=== PATIENT | female | born 1965 | race Caucasian/White ===

== ENCOUNTER 2016-06-24 13:28 | Outpatient (CLI) ==
[2015-11-08 18:30] VITALS: BMI 29.0
[2016-06-24 13:50] LABS: HEMATOCRIT 37.6 % (37.0-47.0); HEMOGLOBIN 12.7 g/dl (12.0-16.0); MEAN CORPUSCULAR HEMOGLOBIN 30.4 pg (27.0-31.0); MEAN CORPUSCULAR HGB CONC 33.8 (31.8-35.4); RED BLOOD COUNT 4.18 10^6/ul (4.20-5.40); WHITE BLOOD COUNT 7.33 K/ul (4.6-10.2)
[2016-06-24 14:02] LABS: PROTHROMBIN TIME 10.3 SEC (9.3-11.0)
== END 2016-06-24 13:29 | disposition home or self-care (01) ==
LOC: LAB 13:28
PROVIDERS: ATTEND Radiology Diagnostic Radiology
DX: R19.09 Other intra-abdominal and pelvic swelling, mass and lump (principal)
CPT/HCPCS: 36415; 85027; 85610

== ENCOUNTER 2016-10-22 11:15 | Outpatient (CLI) ==
[2015-11-08 18:30] VITALS: BMI 29.0
[2016-10-22] MEDS ORDERED: LOVENOX SUBCUT SCH (11:30)
[2016-10-22 21:19] VITALS: BP 107/70; TEMP 98.9
== END 2016-10-22 11:16 | disposition home or self-care (01) ==
LOC: OPMED 11:15
PROVIDERS: ATTEND Internal Medicine Hematology & Oncology
DX: I82.409 Acute embolism and thrombosis of unspecified deep veins of unspecified lower extremity (principal)
CPT/HCPCS: 96372

== ENCOUNTER 2016-10-22 21:04 | Outpatient (CLI) ==
[2015-11-08 18:30] VITALS: BMI 29.0
[2016-10-22] MEDS ORDERED: LOVENOX ONE (21:15)
== END 2016-10-22 21:05 | disposition home or self-care (01) ==
LOC: OPMED 21:04
PROVIDERS: ATTEND Internal Medicine Hematology & Oncology
DX: I82.409 Acute embolism and thrombosis of unspecified deep veins of unspecified lower extremity (principal)

== ENCOUNTER 2016-10-23 09:02 | Outpatient (CLI) ==
[2015-11-08 18:30] VITALS: BMI 29.0
[2016-10-23] MEDS ORDERED: LOVENOX SUBCUT SCH (09:30)
[2016-10-23 09:39] VITALS: BP 108/58; TEMP 98.1
== END 2016-10-23 09:34 | disposition home or self-care (01) ==
LOC: OPMED 09:02
PROVIDERS: ATTEND Internal Medicine Hematology & Oncology
DX: I82.409 Acute embolism and thrombosis of unspecified deep veins of unspecified lower extremity (principal)
CPT/HCPCS: 96372

== ENCOUNTER 2016-10-23 18:18 | Outpatient (CLI) ==
[2015-11-08 18:30] VITALS: BMI 29.0
[2016-10-23 19:10] VITALS: BP 109/68; TEMP 98.6
[2016-10-24] MEDS ORDERED: LOVENOX SUBCUT ONE (18:33)
== END 2016-10-23 18:19 | disposition home or self-care (01) ==
LOC: OPMED 18:18
PROVIDERS: ATTEND Internal Medicine Hematology & Oncology
DX: I82.409 Acute embolism and thrombosis of unspecified deep veins of unspecified lower extremity (principal)
CPT/HCPCS: 96372

== ENCOUNTER 2017-01-05 13:06 | Outpatient (CLI) ==
[2015-11-08 18:30] VITALS: BMI 29.0
== END 2017-01-05 13:07 | disposition home or self-care (01) ==
LOC: LAB 13:06
PROVIDERS: ATTEND Nurse Practitioner Family
DX: E03.9 Hypothyroidism, unspecified (principal); Z86.718 Personal history of other venous thrombosis and embolism
CPT/HCPCS: 36415; 80061; 84443

== ENCOUNTER 2017-05-14 11:16 | Inpatient (IN) ==
[2017-05-14] MEDS ORDERED: SODIUM CHLORIDE 1,000 ML IV STA (12:03)
[2017-05-14] MEDS ORDERED: ZOFRAN 4 MG/2 ML IVP STA (12:23)
[2017-05-14] MEDS ORDERED: MORPHINE 2 MG/ML SYRINGE IVP STA (12:23)
[2017-05-14] MEDS ORDERED: DILAUDID 2 MG/ML SYRINGE IVP STA (12:27)
[2017-05-14] MEDS ORDERED: DEMEROL 25 MG/ML VIAL IVP STA (12:33)
--- NOTE | 2017-05-14 13:10 | ED.PDOC ---
General ED Provider: Dr. NILO TARANGO Chief Complaint: Nausea/Vomiting Stated Complaint: nausea, vomiting Time Seen by Physician: 11:20 (hospice pt with ongoing nausea some vomiting seen with SARAH PA STUDENT AT ALL TIME AND NURSING STAFF) Mode of Arrival: Wheelchair Information Source: Patient, Family Exam Limitations: No limitations Primary Care Provider: ANGY TROTTER Nursing and Triage Documentation Reviewed and Agree: Yes Reviewed sepsis parameters & appropriate labs ordered?: Yes System Inflammatory Response Syndrome: Not Applicable Sepsis Protocol: For patient's 13 years and over: Temp is 96.8 and below OR 101 and greater Pulse >90 BPM Resp >20/minute Acutely Altered Mental Status Are patient's symptoms suggestive of a new infection, such as: -Pneumonia -Skin, Soft Tissue -Endocarditis -UTI -Bone, Joint Infection -Implantable Device -Acute Abdominal Infection -Wound Infection -Meningitis -Blood Stream Catheter Infection -Unknown System Inflammatory Response Syndrome: Not Applicable GI Complaint Exam - Vomiting/Diarrhea Complaint/Exam Onset/Duration: 3 DAYS Symptoms Are: Resolved Episodes of Vomiting over last 24 Hours: 5 Episodes of Diarrhea Over Last 24 Hours: 0 Initial Severity: Moderate Current Severity: Mild Character of Vomiting: Reports: Non-bilious Aggravating: Reports: None Alleviating: Reports: None Associated Signs and Symptoms: Denies: Dizziness, Light-headedness, Melena, Hematemesis, Fever, Abdominal pain, Cramping Related History: Reports: Similar episode Non-GI Risk Factors: Reports: None Surgical Obstruction Risk Factors: Reports: None Related Surgical History: Reports: None Abdominal Findings: Present: None Review of Systems - Review Of Systems Constitutional: Reports: Malaise Eyes: Reports: No symptoms Ears, Nose, Mouth, Throat: Reports: No symptoms Respiratory: Reports: No symptoms Cardiac: Reports: No symptoms GI: Reports: Nausea, Vomiting : Reports: No symptoms Musculoskeletal: Reports: No symptoms Skin: Reports: No symptoms Neurological: Reports: No symptoms Endocrine: Reports: No symptoms Hematologic/Lymphatic: Reports: No symptoms All Other Systems: Reviewed and Negative Past Medical History - Past Medical History Previously Healthy: Yes Endocrine: Reports: Hypothyroid Cardiovascular: Reports: None Respiratory: Reports: COPD Hematological: Reports: None Gastrointestinal: Reports: GERD, Other Genitourinary: Reports: None Neuro/Psych: Reports: None Musculoskeletal: Reports: None Cancer: Reports: Other Last Menstrual Period: hysterectomy - Surgical History General Surgical History: Reports: Hysterectomy, Orthopedic - Family History Family History: Reports: Unknown - Social History Smoking Status: Current every day smoker, Light tobacco smoker Hx Substance Use: No Alcohol Screening: None Physical Exam - Physical Exam Appearance: Ill-appearing Ill-appearing: Moderate Pain Distress: Moderate Eyes: JANAY, EOMI, Conjunctiva clear ENT: Dry mucosa Respiratory: Airway patent, Breath sounds clear, Breath sounds equal, Respirations nonlabored Cardiovascular: RRR, Pulses normal, No rub, No murmur GI/: Soft, Nontender, No masses, Bowel sounds normal, No Organomegaly Musculoskeletal: Normal strength, ROM intact, No edema, No calf tenderness Skin: Warm, Dry, Normal color Neurological: Sensation intact, Motor intact, Reflexes intact, Cranial nerves intact, Alert, Oriented Psychiatric: Affect appropriate, Mood appropriate Physician Notification - Case Discussed Physician Notified: DANE Time of Notification: 13:12 Admit To: Inpatient Critical Care Note - Critical Care Note Total Time (mins): 0 Course - Course Hematology/Chemistry: 05/14/17 12:00 05/14/17 12:00 Orders, Labs, Meds: Lab Review 05/14/17 05/14/17 05/14/17 12:00 12:00 12:02 WBC 23.83 H RBC 4.50 Hgb 11.9 L Hct 35.0 L MCV 77.8 L MCH 26.4 L MCHC 34.0 RDW Coeff of Tony 15.3 H Plt Count 424 Immature Gran % (Auto) 0.7 Neut % (Auto) 87.2 Lymph % (Auto) 7.5 L [place] % (Auto) 3.7 Eos % (Auto) 0.4 Baso % (Auto) 0.5 Immature Gran # (Auto) 0.2 Neut # 20.8 H Lymph # 1.8 [place] # 0.9 Eos # 0.1 Baso # 0.1 Sodium 136 Potassium 4.2 Chloride 100 Carbon Dioxide 22 Anion Gap 18.2 BUN 9 Creatinine 0.75 Estimated GFR (MDRD) 81.00 BUN/Creatinine Ratio 12.00 Glucose 105 Calcium 9.2 Total Bilirubin < 0.3 AST 12 L ALT 6 L Alkaline Phosphatase 92 Total Protein 7.2 Albumin 2.6 L Globulin 4.6 Albumin/Globulin Ratio 0.57 Influenza A (Rapid) Negative by naat Influenza B (Rapid) Negative by naat Orders Category Date Time Status ED IV/MEDIPORT/POWERPORT .ONCE EMERGENCY 05/14/17 12:00 Active BLOOD CULTURE (ED ONLY) Stat LAB 05/14/17 12:00 Received CBC W/ AUTO DIFF Stat LAB 05/14/17 12:00 Completed COMPREHENSIVE METABOLIC PANEL Stat LAB 05/14/17 12:00 Completed FLU A/B MOLECULAR Stat LAB 05/14/17 12:02 Completed MOLECULAR GROUP A STREP Stat LAB 05/14/17 12:02 Completed 0.9 % Sodium Chloride [Saline Flush] MEDS 05/14/17 11:59 Active 1 syr IVF PRN PRN Meperidine HCl/Pf [Demerol 25 mg/ml Vial] MEDS 05/14/17 12:33 Discontinued 25 mg IVP ONCE STA Morphine Sulfate [Morphine 2 mg/ml Syringe] MEDS 05/14/17 12:23 Discontinued 2 mg IVP ONCE STA Sodium Chloride 0.9% [Sodium Chloride] 1,000 ml MEDS 05/14/17 12:03 Discontinued IV BOLUS Medications Generic Name Dose Route Start Last Admin Trade Name Freq PRN Reason Stop Dose Admin Sodium Chloride 1 syr 05/14/17 11:59 Saline Flush IVF PRN PRN To flush IV Discontinued Medications Generic Name Dose Route Start Last Admin Trade Name Freq PRN Reason Stop Dose Admin Sodium Chloride 1,000 mls @ 1,000 mls/hr 05/14/17 12:03 05/14/17 12:29 Sodium Chloride IV 05/14/17 13:02 1,000 mls/hr BOLUS STA Administration Meperidine HCl 25 mg 05/14/17 12:33 05/14/17 12:40 Demerol 25 Mg/Ml Vial IVP 05/14/17 12:34 25 mg ONCE STA Administration Morphine Sulfate 2 mg 05/14/17 12:23 05/14/17 12:29 Morphine 2 Mg/Ml Syringe IVP 05/14/17 12:24 Not Given ONCE STA Vital Signs: Temp Pulse Resp BP Pulse Ox 05/14/17 11:16 97.3 F L 100 H 20 118/68 100 Departure - Departure Time of Disposition: 13:12 Disposition: ADMITTED INPATIENT Discharge Problem: Nausea, Vomiting, Weakness Instructions: Weakness (ED) Condition: Good Pt referred to PMD for follow-up: Yes IPMP verified?: Yes Allergies/Adverse Reactions: Allergies codeine Adverse Reaction (Verified 11/08/15 18:24) morphine Adverse Reaction (Verified 05/14/17 11:27) Penicillins Adverse Reaction (Verified 11/08/15 18:24) Home Medications: Ambulatory Orders Lorazepam [Ativan] 2 mg PO Q6HR PRN 05/14/17 Oxycodone-Acetaminophen 10-325 [Percocet 10-325] 1 tab PO Q4H 05/14/17 Promethazine HCl [Phenergan Tab] 25 mg PO Q6H PRN 05/14/17
[2017-05-14] MEDS ORDERED: ROCEPHIN 1 GM in SODIUM CHLORIDE 50 ML IV STA (13:14)
[2017-05-14] MEDS ORDERED: NON-FORMULARY MEDICATION (Lorazepam [Ativan] 2 MG) PO PRN (13:14)
[2017-05-14] MEDS ORDERED: ROCEPHIN ONE (13:23)
[2017-05-14] MEDS ORDERED: PROTONIX IV IVP STA (15:03)
[2017-05-14] MEDS ORDERED: ESOMEPRAZOLE MAGNESIUM PO PRN (15:21)
[2017-05-14] MEDS ORDERED: NORCO 10-325 ONE (15:23)
[2017-05-14] MEDS: PERCOCET 10-325 PO SCH ×3 (15:26→20:44)
[2017-05-14] MEDS: SODIUM CHLORIDE 1,000 ML IV SCH (15:30)
[2017-05-14 15:41] VITALS: BMI 24.8
[2017-05-14] MEDS: PHENERGAN TAB PO PRN (18:28)
[2017-05-15] MEDS: PERCOCET 10-325 PO SCH ×4 (02:14→14:11)
[2017-05-15] MEDS ORDERED: ATIVAN PO PRN (07:11)
[2017-05-15] MEDS: SODIUM CHLORIDE 1,000 ML IV SCH (07:21)
[2017-05-15] MEDS: PHENERGAN TAB PO PRN (07:21)
[2017-05-15] MEDS ORDERED: SODIUM CHLORIDE 250 ML IV ONE (08:32)
[2017-05-15 14:59] VITALS: BP 106/64; TEMP 97.9
--- NOTE | 2017-06-02 11:36 | HP ---
DATE OF SERVICE: 05/14/17 CHIEF COMPLAINT: Nausea and vomiting HISTORY OF PRESENT ILLNESS: 51 year old female with endometrial cancer with the multiple metastasis on Hospice, started having the nausea, vomiting and not able to keep anything down since Monday. No bilious vomiting. Was having some discomfort in the body, feeling weak and tired so the [facility] nurse suggested that the patient should go to the hospital to get some IV fluids. The patient came to the emergency room and the temperature was normal. Seen by Dr. Daly. WBC was 23, 000. Plt count was 15.3, hgb 11.9. At that time the patient was admitted to the hospital for IV fluids and Zofran. REVIEW OF SYSTEMS: CONSTITUTIONAL: No fever, no chills. Weakness and tiredness. HEENT: Normal. ENDOCRINE: No weight gain; no weight loss. CVS: No chest pain. No PND, no orthopnea. No shortness of breath. No PND, no orthopnea. RESPIRATORY: No cough, no congestion. No hemoptysis. GI: No nausea, no vomiting. No abdominal pain. No melena. : No hematuria. No polyuria. MUSCULOSKELETAL: No joint swelling. PSYCHIATRIC: Not anxious. No depression. No suicidal thoughts. No homicidal thoughts. SKIN: Intact, no open lesions. PAST MEDICAL HISTORY: COPD GERD IBS Endometrial tumor with total hysterectomy Left and right Nephro tubes since 2017 PAST SURGICAL HISTORY: Hysterectomy Arthroscopy Tubes in the ureter PERSONAL HISTORY: The patient does smoke. No alcohol and no drugs. Family history is significant for the lung cancer. MEDICATIONS: Phenergan tab Percocet Ativan Nexium ALLERGIES: Codeine Morphine Penicillin PHYSICAL EXAMINATION: V/S: blood pressure 130/77, respiratory rate 20, heart rate 88, temperature 98.5 with saturation 98%. GENERAL: Sick looking lady laying in the bed. HEENT: Atraumatic, normocephalic. No scleral icterus. Mucosa dry. NECK: Supple. No JVD, no bruit. No lymphadenopathy. No thyromegaly. HEART: S1, S2 normal. No murmur. No cyanosis or clubbing. No ascites. LUNGS: Clear to auscultation. No rales or rhonchi. ABDOMEN: Soft, There is a palpable mass in the left side of the abdomen which is tender to touch which is tumor mass. Bowel sounds are active. No CVA tenderness. No rigidity or guarding. EXTREMITIES: No pedal edema. No cyanosis or clubbing MUSCULOSKELETAL: Normal joints, no swelling. NEUROLOGIC: The patient is SKIN: Intact; no open lesions. LYMPHATIC: No lymph nodes palpable. LABS: Sodium 136, potasium 4.2, chloride 100, bicarb 22, BUN 9, creatinine 0.75, glucose 105, WBC 23.83, hgb 11.9, hct 35.0 and plt count 424. ASSESSMENT: 1. Acute gastritis 2. Dehydration 3. Endometrial cancer with METS all over the body, status post chemo and radiation on Hospice 4. COPD 5. Hypertension PLAN: 1. Admit the patient to the regular floor 2. IV Zofran and IV Fluids 3. Continue the rest of the home medications TIME SPENT: MORE THAN 75 minutes MTDD
--- NOTE | 2017-06-30 13:26 | DS ---
DATE OF SERVICE: 05/15/17 FINAL DIAGNOSIS: 1. Dehydration 2. Leukocytosis secondary to the dehydration 3. Weakness 4. Endometrial cancer has [facility], Taniya Valdivia 5. Ovarian Cancer resected 2006 6. IBS, Dr. Escobar 7. Hypothyroidism 8. COPD 9. Current smoker 10.Endometrial cancer with METS all over the body 11.Hysterectomy 12.Right knee surgery 13.Nephrostomy, right and left DISCHARGE INSTRUCTIONS: Discharge the patient home. Followup with Dr. Horner. [facility] to follow. Continue home medication. No new prescription. MEDICATIONS AT DISCHARGE: Ativan Protonix Oxycodone Phenergan PRN DIET INSTRUCTIONS: As tolerated Drink plenty of water. ACTIVITY: Get plenty of rest SMOKING: Current everyday smoker. Light tobacco smoker Counseling for smoking done DISEASE SPECIFIC EDUCATION: Endometrial cancer with multiple METS- The patient is aware of the situation. She is on the Hospice. HOSPITAL COURSE: Lizzie Lugo 51 year old female followed [facility] and the Dr. Horner for the Endometrial cancer. The patient has a metastatic cancer all over the body. The patient was feeling weak, tired and dehydrated so Dr. Horner suggested to go to the emergency room. The patient came to the emergency room WBC 23,000 with left shift. Chemistry was fine and serology negative for the Flu. Refused to have CAT scan so it is cancelled at this time. At that time given the elevated WBC and no fever with dehydration the patient was admitted to the hospital and started on the IV fluids. By next day the patient's condition was a lot better. Talked to Dr. Horner's office, the patient is under the Hospice and doesn't want any aggressive measures or management at this given time so the patient is being discharged home with Hospice Care as the patient was feeling improved and well rested. TIME SPENT: MORE THAN 55 MINUTES MTDD
== END 2017-05-15 16:15 | disposition hospice, home (50) | DRG 641 ==
LOC: ED 11:16 → MEDSURG B 13:18
PROVIDERS: ADMIT Emergency Medicine; ATTEND Emergency Medicine
DX: E86.0 Dehydration (principal); C79.89 Secondary malignant neoplasm of other specified sites; R53.1 Weakness; D72.829 Elevated white blood cell count, unspecified; R11.2 Nausea with vomiting, unspecified; C54.1 Malignant neoplasm of endometrium; K58.9 Irritable bowel syndrome, unspecified; E03.9 Hypothyroidism, unspecified; J44.9 Chronic obstructive pulmonary disease, unspecified; F17.210 Nicotine dependence, cigarettes, uncomplicated; Z93.6 Other artificial openings of urinary tract status; Z79.899 Other long term (current) drug therapy
CPT/HCPCS: 36415; 80053; 85025; 87040; 87070; 87502; 87651; 96365; 96375; 99284

== ENCOUNTER 2017-07-14 10:05 | Emergency (ER) ==
[2017-07-14 10:14] VITALS: BP 126/83; TEMP 98.5; BMI 23.1
[2017-07-14] MEDS ORDERED: URO-JET MUCOUSMEMB STA (10:42)
--- NOTE | 2017-07-14 11:45 | CT ---
EXAM: CT Abdomen without contrast. CT Pelvis without contrast. HISTORY: Inability to void. Endometrial tumor. COMPARISON: 12/07/2011. TECHNIQUE: Multiple axial images of the abdomen and pelvis were obtained without intravenous contras t. Images were reformatted in the sagittal and coronal plane. FINDINGS: Please note that evaluation of the abdominal and pelvic structures is limited due to lack of intravenous contrast. The lung bases are clear. No acute osseous abnormality identified. No osteolytic or osteoblastic le sions are seen. The liver, gallbladder, pancreas, spleen, and adrenal glands demonstrate normal contour. Bilateral percutaneous nephrostomy tubes are present. There is no hydronephrosis. There is left sarah al atrophy. An catheter present within a collapsed urinary bladder which is displaced anteriorly by a large co mplex mass which extends at least 31 cm cranial caudal by 24 cm transverse by 15 cm AP which also dis places bowel loops. Additional mesenteric soft tissue mass is present measuring up to 8.5 x 6.6 x 7. 1 cm in the upper abdomen on axial image 43. Adjacent nodularity along the omentum near this mass no mike . Umbilical hernia contains a loop of bowel. There is no associated inflammation. There is no evidence for bowel obstruction. Moderate hiatal hernia noted. No free fluid or free air identified. IMPRESSION: 1. Large pelvic mass, most likely representing gynecologic malignancy. Additional metastatic mesent luana mass in the upper abdomen with possible omental involvement. 2. Bilateral percutaneous nephrostomy tubes present without hydronephrosis. An catheter present within a collapsed urinary bladder.
[2017-07-14] MEDS ORDERED: ROCEPHIN IM STA (12:40)
[2017-07-14] MEDS ORDERED: LIDOCAINE HCL 1% SDV IM STA (12:40)
--- NOTE | 2017-07-14 12:44 | ED.PDOC ---
General ED Provider: Dr. 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 ) Mode of Arrival: Walk-In Information Source: Patient Exam Limitations: No limitations Nursing and Triage Documentation Reviewed and Agree: Yes Reviewed sepsis parameters & appropriate labs ordered?: Yes System Inflammatory Response Syndrome: Not Applicable Sepsis Protocol: For patient's 13 years and over: Temp is 96.8 and below OR 101 and greater Pulse >90 BPM Resp >20/minute Acutely Altered Mental Status Are patient's symptoms suggestive of a new infection, such as: -Pneumonia -Skin, Soft Tissue -Endocarditis -UTI -Bone, Joint Infection -Implantable Device -Acute Abdominal Infection -Wound Infection -Meningitis -Blood Stream Catheter Infection -Unknown System Inflammatory Response Syndrome: Not Applicable GI Complaint Exam - Abdominal Pain Complaint/Exam Onset: Gradual Duration: 1 DAY ACCOMPANIED WITH SUPRAPUBIC PAIN Symptoms Are: Still present Timing: Constant Initial Severity: Mild Current Severity: Mild Location of Pain: Suprapubic Radiates To: Denies: Chest, Back, Flank, LLQ, RLQ, Inguinal Character: Reports: Dull Aggravating: Denies: Movement (URINATION ANBLE TO URINATE) Alleviating: Reports: None Associated Signs and Symptoms: Reports: Dysuria, Decreased urine output, Decreased appetite. Denies: Diaphoresis, Fever, Cough, Chest pain, Dizziness, Back pain, Constipation, Blood in stool, Urinary frequency, Vaginal bleeding, Vaginal discharge, Nausea, Vomiting, Diarrhea, Sore throat, Decreased activity Related History: Reports: Similar episode (SUPERVISOR TILE AND MOTTLE CANCER ) AAA Risk Factors: Denies: Prior AAA, Primary relative AAA, Smoking, Hypertension , Atherosclerosis Cardiac Risk Factors: Denies: DM, Hypertension, Smoking, Elevated lipids, Family history, Prior MT, CAD, CHF Ovarian Torsion Risk Factors: Denies: Tubal ligation, Hysterectomy (HAS HX/O ENDSTAGE ENDOMETRIAL CANCER ) Surgical Obstruction Risk Factors: Reports: Prior abdominal surgery ( NEPHROSTOMY TUBES ). Denies: Bilious emesis, Projectile emesis, Colicky abdominal pain Related Surgical History: Denies: Cholecystectomy, Appendectomy, AAA Repair, Gastric Bypass, Bowel Resection, Laparoscopy, Kidney Stones, MIKEL, BSO, Tubal ligation, Lysis of Adhesions Patient Rh Status: Unknown Abdominal Findings: Absent: None Differential Diagnoses: Appendicitis, Bowel Obstruction, Constipation, Gastroenteritis, Hepatitis, Pancreatitis, UTI Review of Systems - Review Of Systems Constitutional: Reports: No symptoms Eyes: Reports: No symptoms Ears, Nose, Mouth, Throat: Reports: No symptoms Respiratory: Reports: No symptoms Cardiac: Reports: No symptoms GI: Reports: Abdominal pain : Reports: Dysuria Musculoskeletal: Reports: No symptoms Skin: Reports: No symptoms Neurological: Reports: No symptoms Endocrine: Reports: No symptoms Hematologic/Lymphatic: Reports: No symptoms All Other Systems: Reviewed and Negative Past Medical History - Past Medical History Previously Healthy: Yes Endocrine: Reports: Hypothyroid Cardiovascular: Reports: None Respiratory: Reports: COPD Hematological: Reports: None Gastrointestinal: Reports: GERD, Other Genitourinary: Reports: None Neuro/Psych: Reports: None Musculoskeletal: Reports: None Cancer: Reports: Other Last Menstrual Period: unknown - Surgical History General Surgical History: Reports: Hysterectomy, Orthopedic - Family History Family History: Reports: Unknown - Social History Smoking Status: Current every day smoker, Light tobacco smoker Hx Substance Use: No Alcohol Screening: None Physical Exam - Physical Exam Appearance: Well-appearing, No pain distress, Well-nourished Eyes: JANAY, EOMI, Conjunctiva clear ENT: Ears normal, Nose normal, Oropharynx normal Respiratory: Airway patent, Breath sounds clear, Breath sounds equal, Respirations nonlabored Cardiovascular: RRR, Pulses normal, No rub, No murmur GI/: Soft, No masses, Bowel sounds normal, No Organomegaly, Tender ( SUPRAPUBIC ) Musculoskeletal: Normal strength, ROM intact, No edema, No calf tenderness Skin: Warm, Dry, Normal color Neurological: Sensation intact, Motor intact, Reflexes intact, Cranial nerves intact, Alert, Oriented Psychiatric: Affect appropriate, Mood appropriate Interpretation - Radiology Interpretation Radiology Interpretation By: Radiologist Radiology Results: Positive (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 TILE AND MOTTLE CANCER PT IS AWARE) Re-Evaluation - Re-Evaluation Time of Re-Evaluation: 10:30 (POST AN 600 ML URINE WAS EVACUATED PT IS COMFORTABLE) Vital Signs Stable: Yes Pain Level: 0 Appearance: NAD Lungs: Clear Skin: Warm and Dry Neuro: Alert and Oriented X3 CV: RRR - Re-Evaluation Time of Re-Evaluation: 12:48 Status: Improved Vital Signs Stable: Yes Pain Level: 0 Appearance: NAD Skin: Warm and Dry Neuro: Alert and Oriented X3 CV: RRR (AN EXCAMINED NO BLOOD NOTED GROSSLY) Critical Care Note - Critical Care Note Total Time (mins): 0 Course - Course Hematology/Chemistry: 07/14/17 10:40 Orders, Labs, Meds: Lab Review 07/14/17 07/14/17 10:40 11:00 WBC 13.59 H RBC 4.12 L Hgb 9.8 L Hct 29.7 L MCV 72.1 L MCH 23.8 L MCHC 33.0 RDW Coeff of Tony 17.1 H Plt Count 436 Immature Gran % (Auto) 0.6 Neut % (Auto) 80.2 Lymph % (Auto) 11.8 [place] % (Auto) 5.3 Eos % (Auto) 1.7 Baso % (Auto) 0.4 Immature Gran # (Auto) 0.1 Neut # (Auto) 10.9 H Lymph # (Auto) 1.6 [place] # (Auto) 0.7 Eos # (Auto) 0.2 Baso # (Auto) 0.1 Urine Color Yellow Urine Clarity Cloudy Urine pH 6.5 Ur Specific [place] 1.010 Urine Protein Negative Urine Glucose (UA) Negative Urine Ketones Negative Urine Blood Trace-intact Urine Nitrite Positive Urine Bilirubin Negative Urine Urobilinogen 0.2 Ur Leukocyte Esterase 3+ Urine Microscopic RBC 0-2 Urine Microscopic WBC Tntc Ur Squamous Epith Cells 0-2 Urine Bacteria 3+ Orders Category Date Time Status Bladder [ED BLADDER SCAN] .ONCE EMERGENCY 07/14/17 10:41 Active An [ED CATHETER INSERTION AND CARE] .ONCE EMERGENCY 07/14/17 10:42 Active CBC W/ AUTO DIFF Stat LAB 07/14/17 10:40 Completed COMPREHENSIVE METABOLIC PANEL Stat LAB 07/14/17 11:00 Received URINALYSIS C & S IF INDICATED Stat LAB 07/14/17 11:00 Completed URINE CULTURE Stat LAB 07/14/17 11:00 Received Ceftriaxone Sodium [Rocephin] MEDS 07/14/17 12:40 Stat 1 gm IM ONCE STA Lidocaine HCl [Uro-Jet] MEDS 07/14/17 10:42 Discontinued 10 ml [id number] ONCE STA Lidocaine HCl/Pf [Lidocaine HCl 1% Sdv] MEDS 07/14/17 12:40 Stat 2.1 ml IM ONCE STA CT ABD/PEL WO RENAL STONE PROT Stat RADS 07/14/17 10:40 Completed Medications Discontinued Medications Generic Name Dose Route Start Last Admin Trade Name Freq PRN Reason Stop Dose Admin Ceftriaxone Sodium 1 gm 07/14/17 12:40 Rocephin IM 07/14/17 12:41 ONCE STA Lidocaine HCl 10 ml 07/14/17 10:42 07/14/17 11:19 Uro-Jet [id number] 07/14/17 10:43 Not Given ONCE STA Lidocaine HCl 2.1 ml 07/14/17 12:40 Lidocaine Hcl 1% Sdv IM 07/14/17 12:41 ONCE STA Vital Signs: Temp Pulse Resp BP Pulse Ox 07/14/17 10:06 98.5 F 117 H 20 126/83 98 Departure - Departure Time of Disposition: 12:48 Disposition: HOME SELF-CARE Discharge Problem: Urinary symptoms, Urinary tract infectious disease Instructions: Urinary Tract Infection in Women (ED), An Catheter Placement and Care (ED), Chronic Urinary Retention in Women (ED) Condition: Good Pt referred to PMD for follow-up: Yes IPMP verified?: No Additional Instructions: Please call your Family Physician as soon as possible to schedule a follow-up appointment. Prescriptions: Sulfamethoxazole/Trimethoprim [Bactrim Ds Tablet] 1 each PO BID #10 tablet Allergies/Adverse Reactions: Allergies codeine Adverse Reaction (Verified 07/14/17 10:14) morphine Adverse Reaction (Verified 07/14/17 10:14) Penicillins Adverse Reaction (Verified 07/14/17 10:14) Home Medications: Ambulatory Orders Esomeprazole Magnesium [Nexium 24Hr] 1 tab PO DAILY PRN 05/14/17 Lorazepam [Ativan] 2 mg PO Q6HR PRN 05/14/17 Oxycodone-Acetaminophen 10-325 [Percocet 10-325] 1 tab PO Q4H 05/14/17 Promethazine HCl [Phenergan Tab] 25 mg PO Q6H PRN 05/14/17 Methadone HCl [Methadone] 10 mg PO Q12HR 07/14/17 Sulfamethoxazole/Trimethoprim [Bactrim Ds Tablet] 1 each PO BID #10 tablet 07/14
== END 2017-07-14 13:50 | disposition home or self-care (01) ==
LOC: ED 10:05
DX: N39.0 Urinary tract infection, site not specified (principal); F17.210 Nicotine dependence, cigarettes, uncomplicated; C76.8 Malignant neoplasm of other specified ill-defined sites; R33.9 Retention of urine, unspecified
CPT/HCPCS: 36415; 74176; 80053; 81001; 85025; 87086; 87186; 96372; 99283

== ENCOUNTER 2017-09-06 23:28 | Inpatient (IN) | payer OTHER ==
[2017-09-06 23:33] VITALS: BMI 23.3
[2017-09-06] MEDS ORDERED: SODIUM CHLORIDE 1,000 ML IV STA (23:43)
[2017-09-06] MEDS ORDERED: PHENERGAN 25 MG/ML VIAL 25 MG in SODIUM CHLORIDE 50 ML IV STA (23:45)
[2017-09-06] MEDS ORDERED: PHENERGAN 25 MG/ML VIAL ONE (23:48)
[2017-09-07] MEDS ORDERED: URO-JET MUCOUSMEMB STA (00:05)
[2017-09-07] MEDS: DILAUDID 0.5 MG/0.5 ML SYRINGE IVP PRN ×3 (00:05→02:22)
--- NOTE | 2017-09-07 00:08 | ED.PDOC ---
General ED Provider: Dr. TEQUILA MERAZ-ER Chief Complaint: Urinary Problem Stated Complaint: sent her for pain managemnt and nausea complaints by residential hospice--hxs endometrial cancer Time Seen by Physician: 23:30 Mode of Arrival: Wheelchair Information Source: Patient, Family Exam Limitations: No limitations Primary Care Provider: JESSIE VELA[facility] Nursing and Triage Documentation Reviewed and Agree: Yes Reviewed sepsis parameters & appropriate labs ordered?: Yes System Inflammatory Response Syndrome: Not Applicable Sepsis Protocol: For patient's 13 years and over: Temp is 96.8 and below OR 101 and greater Pulse >90 BPM Resp >20/minute Acutely Altered Mental Status Are patient's symptoms suggestive of a new infection, such as: -Pneumonia -Skin, Soft Tissue -Endocarditis -UTI -Bone, Joint Infection -Implantable Device -Acute Abdominal Infection -Wound Infection -Meningitis -Blood Stream Catheter Infection -Unknown Complaint Exam - Complaint/Exam Patient Complains of: Reports: Pain Symptoms Are: Still present Timing: Constant Initial Severity: Mild Current Severity: Moderate Location of Pain: Reports: Diffuse Character: Reports: Dull, Cramping Associated Signs and Symptoms: Reports: Appetite change, Nausea, Vomiting, Abdominal Pain. Denies: Diaphoresis, Back pain, Fever, Hematuria, Dysuria Surgical Obstruction Risk Factors: Reports: None RH Status: Unknown Differential Diagnoses: Ureteral Stone, UTI Review of Systems - Review Of Systems Constitutional: Reports: No symptoms Eyes: Reports: No symptoms Ears, Nose, Mouth, Throat: Reports: No symptoms Respiratory: Reports: No symptoms Cardiac: Reports: No symptoms GI: Reports: Abdominal pain : Reports: Hematuria, Pain Musculoskeletal: Reports: No symptoms Skin: Reports: No symptoms Neurological: Reports: No symptoms Endocrine: Reports: No symptoms Hematologic/Lymphatic: Reports: No symptoms All Other Systems: Reviewed and Negative Past Medical History - Past Medical History Previously Healthy: Yes Endocrine: Reports: Hypothyroid Cardiovascular: Reports: None Respiratory: Reports: COPD Hematological: Reports: None Gastrointestinal: Reports: GERD, Other Genitourinary: Reports: None Neuro/Psych: Reports: None Musculoskeletal: Reports: None Cancer: Reports: Other Last Menstrual Period: NONE - Surgical History General Surgical History: Reports: Hysterectomy, Orthopedic - Family History Family History: Reports: Unknown - Social History Smoking Status: Current every day smoker, Light tobacco smoker Hx Substance Use: No Alcohol Screening: None - Immunizations Tetanus Shot up to Date: Yes Physical Exam - Physical Exam Appearance: Well-appearing, No pain distress, Well-nourished Ill-appearing: Moderate Pain Distress: Moderate Eyes: JANAY, EOMI, Conjunctiva clear ENT: Ears normal, Nose normal, Oropharynx normal Neck: Supple Respiratory: Airway patent Cardiovascular: RRR, Pulses normal, No rub, No murmur GI/: Soft, Tender Musculoskeletal: Normal strength, ROM intact, No edema, No calf tenderness Skin: Warm, Dry, Normal color Neurological: Sensation intact, Motor intact, Reflexes intact, Cranial nerves intact, Alert, Oriented Psychiatric: Affect appropriate, Mood appropriate Interpretation - Radiology Interpretation Radiology Interpretation By: Radiologist Radiology Results: Positive Exam Interpreted: CT Scan - Park Manager Time of Park Manager Interpretation: 03:10 Physician Notification - Case Discussed Physician Notified: dr [email or web address] Time of Notification: 03:10 Critical Care Note - Critical Care Note Total Time (mins): 30 Course - Course Hematology/Chemistry: 09/06/17 00:00 09/06/17 00:00 Orders, Labs, Meds: Lab Review 09/06/17 09/06/17 09/07/17 00:00 00:00 00:36 WBC 15.20 H RBC 4.73 Hgb 10.8 L Hct 33.4 L MCV 70.6 L MCH 22.8 L MCHC 32.3 RDW Coeff of Tony 19.9 H Plt Count 483 H Immature Gran % (Auto) 0.5 Neut % (Auto) 73.5 Lymph % (Auto) 18.1 [place] % (Auto) 5.5 Eos % (Auto) 1.7 Baso % (Auto) 0.7 Immature Gran # (Auto) 0.1 Neut # (Auto) 11.2 H Lymph # (Auto) 2.8 [place] # (Auto) 0.8 Eos # (Auto) 0.3 Baso # (Auto) 0.1 Sodium 138 Potassium 3.4 L Chloride 103 Carbon Dioxide 21 Anion Gap 17.4 BUN 7 Creatinine 0.76 Estimated GFR (MDRD) 80.00 BUN/Creatinine Ratio 9.21 Glucose 121 H Calcium 9.1 Total Bilirubin 0.3 AST 11 L ALT 8 L Alkaline Phosphatase 74 Total Creatine Kinase 15 Troponin I < 0.0100 Total Protein 7.5 Albumin 2.7 L Globulin 4.8 Albumin/Globulin Ratio 0.56 Amylase 44 Lipase 9 Urine Color Yellow Urine Clarity Slightly Urine pH 7.0 Ur Specific [place] 1.015 Urine Protein 1+ Urine Glucose (UA) Negative Urine Ketones Negative Urine Blood 1+ Urine Nitrite Positive Urine Bilirubin Negative Urine Urobilinogen 0.2 Ur Leukocyte Esterase 3+ Urine Microscopic RBC 5-10 Urine Microscopic WBC 50-100 Ur Squamous Epith Cells 2-5 Urine Bacteria 3+ Orders Category Date Time Status EKG-(ED ONLY) Stat CARDIO 09/06/17 23:43 Ordered Bladder Scan [ED BLADDER SCAN] .ONCE EMERGENCY 09/06/17 23:43 Active ED IV/MEDIPORT/POWERPORT .ONCE EMERGENCY 09/06/17 23:43 Active An [ED CATHETER INSERTION AND CARE] .ONCE EMERGENCY 09/07/17 00:05 Active AMYLASE Stat LAB 09/06/17 00:00 Completed CBC W/ AUTO DIFF Stat LAB 09/06/17 00:00 Completed COMPREHENSIVE METABOLIC PANEL Stat LAB 09/06/17 00:00 Completed CREATINE KINASE Stat LAB 09/06/17 00:00 Completed LIPASE Stat LAB 09/06/17 00:00 Completed TROPONIN I Stat LAB 09/06/17 00:00 Completed URINALYSIS C & S IF INDICATED Stat LAB 09/07/17 00:36 Completed URINE CULTURE Stat LAB 09/07/17 00:36 Received 0.9 % Sodium Chloride [Saline Flush] MEDS 09/06/17 23:43 Ordered 1 syr IVF PRN PRN Hydromorphone HCl [Dilaudid] MEDS 09/06/17 23:45 Ordered 1 mg IVP Q1HR PRN Levofloxacin/D5w [Levaquin] 100 ml MEDS 09/07/17 01:52 Discontinued IV .STK-MED Levofloxacin/D5w [Levaquin] 500 mg MEDS 09/07/17 01:46 Discontinued Premix 100 ml D5w 1 bag IV ONCE Lidocaine HCl [Uro-Jet] MEDS 09/07/17 00:05 Discontinued 10 ml MUCOUSMEMB ONCE STA Ondansetron HCl/Pf [Zofran 4 mg/2 ml] MEDS 09/07/17 01:46 Discontinued 8 mg IVP ONCE STA Promethazine HCl [Phenergan 25 mg/ml Vial] MEDS 09/06/17 23:48 Discontinued 25 mg .ROUTE .STK-MED ONE Promethazine HCl [Phenergan 25 mg/ml Vial] 25 mg MEDS 09/06/17 23:45 Discontinued 0.9 % Sodium Chloride [Sodium Chloride] 50 ml IV ONCE Sodium Chloride 0.9% [Sodium Chloride] 1,000 ml MEDS 09/06/17 23:[address] ABDOMEN/PELVIS WO CONTRAST Stat RADS 09/06/17 23:43 Completed Medications Generic Name Dose Route Start Last Admin Trade Name Freq PRN Reason Stop Dose Admin Hydromorphone HCl 1 mg 09/06/17 23:45 09/07/17 02:22 Dilaudid IVP 1 mg Q1HR PRN Administration Abdominal Pain Sodium Chloride 1 syr 09/06/17 23:43 Saline Flush IVF PRN PRN To flush IV Discontinued Medications Generic Name Dose Route Start Last Admin Trade Name Freq PRN Reason Stop Dose Admin Promethazine HCl 25 mg/ Sodium 51 mls @ 75 mls/hr 09/06/17 23:45 09/07/17 00: 07 Chloride IV 09/07/17 00:25 75 mls/hr ONCE STA Administration Sodium Chloride 1,000 mls @ 1,000 mls/hr 09/06/17 23:43 09/07/17 00:07 Sodium Chloride IV 09/07/17 00:42 1,000 mls/hr BOLUS STA Administration Levofloxacin/Dextrose 500 mg/ 100 mls @ 100 mls/hr 09/07/17 01:46 09/07/17 01 :53 Dextrose IV 09/07/17 02:45 100 mls/hr ONCE STA Administration Lidocaine HCl 10 ml 09/07/17 00:05 09/07/17 01:17 Uro-Jet MUCOUSMEMB 09/07/17 00:06 Not Given ONCE STA Ondansetron HCl 8 mg 09/07/17 01:46 09/07/17 01:55 Zofran 4 Mg/2 Ml IVP 09/07/17 01:47 8 mg ONCE STA Administration Vital Signs: Temp Pulse Resp BP Pulse Ox 09/06/17 23:29 98.6 F 102 H 22 118/86 98 Departure - Departure Time of Disposition: 03:11 Disposition: ADMITTED INPATIENT Discharge Problem: Endometrial cancer, Obstipation UTI (urinary tract infection) Qualifiers: Urinary tract infection type: site unspecified Hematuria presence: without hematuria Qualified Code(s): N39.0 - Urinary tract infection, site not specified Condition: Poor Pt referred to PMD for follow-up: Yes IPMP verified?: No Allergies/Adverse Reactions: Allergies codeine Adverse Reaction (Verified 09/06/17 23:31) morphine Adverse Reaction (Verified 09/06/17 23:31) Penicillins Adverse Reaction (Verified 09/06/17 23:31) Home Medications: Ambulatory Orders Esomeprazole Magnesium [Nexium 24Hr] 1 tab PO DAILY PRN 05/14/17 Lorazepam [Ativan] 2 mg PO Q6HR PRN 05/14/17 Oxycodone-Acetaminophen 10-325 [Percocet 10-325] 1 tab PO Q4H 05/14/17 Promethazine HCl [Phenergan Tab] 25 mg PO Q6H PRN 05/14/17 Methadone HCl [Methadone] 10 mg PO Q12HR 07/14/17 Sulfamethoxazole/Trimethoprim [Bactrim Ds Tablet] 1 each PO BID #10 tablet 07/14 Disposition Discussed With: Patient, Family
[2017-09-07] MEDS ORDERED: LEVAQUIN 500 MG in PREMIX 100 ML D5W 1 BAG IV STA (01:46)
[2017-09-07] MEDS ORDERED: ZOFRAN 4 MG/2 ML IVP STA (01:46)
[2017-09-07] MEDS ORDERED: LEVAQUIN 100 ML IV ONE (01:52)
--- NOTE | 2017-09-07 01:56 | CT ---
EXAM: CT of the abdomen and pelvis without contrast. HISTORY: Abdominal pain. History of endometrial cancer. PROCEDURE: Contiguous axial CT images of the abdomen and pelvis without contrast with coronal and sa gittal reformats. FINDINGS: Comparison made with CT of 07/14/2017. There is minimal bibasilar atelectasis. The liver, gallbladder, pancreas, spleen and adrenal glands are normal in appearance. There is left renal atrop hy. There are bilateral percutaneous nephrostomy catheters in stable position with no hydronephrosis . The abdominal aorta is within normal limits in diameter. There is a moderate hiatal hernia. There is fecal stasis in the colon which measures up to 5.8 cm in diameter. The appendix is not definitely visualized. No free fluid or free air in the abdomen or pelvis. Redemonstrated is a large complex ma ss which is increased in size measuring 32 cm cc x 26 x 20 cm. The mass displaces multiple bowel loop s. There is a stable mesenteric mass measuring 8.5 x 6.4 cm which is repositioned in the right abdom en. Redemonstrated is a small umbilical hernia containing a short segment of bowel with no evidence of obstruction. There is a An catheter in the bladder and the bladder is decompressed which limits the evaluation. There are multiple left inguinal lymph nodes measuring up to 0.9 cm in short axis. T here are degenerative changes in the spine. Impression: Interval increase in size of large complex mass as described. Please see report from CT o f 07/14/2017 for further details. Stable mesenteric mass as described. Fecal stasis in the colon as described. Bilateral percutaneous nephrostomy catheter is in stable position with no hydronephrosis. Left renal atrophy. Moderate hiatal hernia. Umbilical hernia as described. Decompressed bladder with An catheter. Minimal bibasilar atelectasis.
[2017-09-07] MEDS ORDERED: PHENERGAN 25 MG/ML VIAL 25 MG in SODIUM CHLORIDE 50 ML IV PRN (03:14)
[2017-09-07] MEDS ORDERED: NON-FORMULARY MEDICATION (Lorazepam [Ativan] 2 MG) PO PRN (03:18)
[2017-09-07] MEDS: SODIUM CHLORIDE 1,000 ML IV SCH ×2 (03:34→14:45)
[2017-09-07] MEDS ORDERED: REGLAN IVP STA (03:40)
[2017-09-07] MEDS: PERCOCET 10-325 PO SCH ×6 (04:29→23:40)
[2017-09-07] MEDS: ZOFRAN 4 MG/2 ML IVP PRN ×2 (06:35→15:49)
[2017-09-07] MEDS ORDERED: DILAUDID 2 MG/ML SYRINGE ONE (06:38)
[2017-09-07] MEDS ORDERED: DILAUDID 2 MG/ML SYRINGE IVP STA (06:40)
[2017-09-07] MEDS ORDERED: ATIVAN PO PRN ×2 (07:12→12:44)
[2017-09-07] MEDS ORDERED: DILAUDID 2 MG/ML SDV IVP PRN (07:30)
[2017-09-07] MEDS ORDERED: DILAUDID 2 MG/ML SYRINGE IVP PRN (07:30)
[2017-09-07] MEDS: METHADONE PO SCH ×2 (08:49→20:50)
--- NOTE | 2017-09-07 12:20 | DI ---
EXAM: Single-view abdomen HISTORY: Constipation COMPARISON: None. FINDINGS: Percutaneous nephrostomy catheters noted bilaterally. There is moderate amount colonic fe jeanette stasis in the ascending, transverse and proximal descending colon. IMPRESSION: Extensive colonic fecal stasis without obstruction
[2017-09-07] MEDS ORDERED: DULCOLAX RC STA (13:16)
[2017-09-07] MEDS ORDERED: CITRATE OF MAGNESIA PO STA (13:16)
[2017-09-07] MEDS: PROTONIX IV IVP SCH ×2 (14:17→20:50)
[2017-09-07] MEDS: LEVAQUIN 750 MG in PREMIX 150 ML D5W 1 BAG IV SCH (20:51)
[2017-09-07] MEDS ORDERED: LEVAQUIN 500 MG in PREMIX 100 ML D5W 1 BAG IV SCH (21:00)
[2017-09-08] MEDS: PERCOCET 10-325 PO SCH ×6 (03:39→23:26)
[2017-09-08] MEDS: SODIUM CHLORIDE 1,000 ML IV SCH ×3 (05:35→19:34)
[2017-09-08] MEDS: METHADONE PO SCH ×2 (08:42→20:36)
[2017-09-08] MEDS: PROTONIX IV IVP SCH ×2 (08:42→20:44)
--- NOTE | 2017-09-08 14:49 | HP ---
DATE OF SERVICE: 09/07/17 CHIEF COMPLAINT: Fever and constipation HISTORY OF PRESENT ILLNESS: This is a 52 year old female with a history of metastatic endometrial tumor who is in the Hospice care came to the emergency room as she was voiding and not able to have bowel movement. The patient has bilateral nephrostomy tubes for endometrial cancer treatment. Been nauseous, vomiting and not able to keep anything down. She came to the emergency room and was seen by Dr. Leon in the emergency room. WBC was 15,000, potassium 3.4, glucose 121. CT of abdomen and pelvis done; interval increase in the size of large complex mass, mesenteric mass is seen. At that time the patient was admitted to the hospital for urinary tract infection, obstipation, metastatic uterine cancer. REVIEW OF SYSTEMS: CONSTITUTIONAL: No fever, no chills. Weakness and tiredness. HEENT: Normal. ENDOCRINE: No weight gain; no weight loss. CVS: No chest pain. No PND, no orthopnea. No shortness of breath. No PND, no orthopnea. RESPIRATORY: No cough, no congestion. No hemoptysis. GI: No nausea, no vomiting. Abdominal pain. No melena. Constipation and not able to void. : No hematuria. No polyuria. MUSCULOSKELETAL: No joint swelling. PSYCHIATRIC: Not anxious. No depression. No suicidal thoughts. No homicidal thoughts. SKIN: Intact, no open lesions. PAST MEDICAL HISTORY: COPD History of endometrial tumor Obstipation GERD Hysterectomy Status post nephrostomy Urinary tract infection Hypothyroidism PAST SURGICAL HISTORY: Hysterectomy Arthroscopy knee PERSONAL HISTORY: The patient does smoke one pack per day for 2-3 years FAMILY HISTORY: Heart problems lung cancer MEDICATIONS: Phenergan Oxycodone Lorazepam Esomeprazole Bactrim Methadone ALLERGIES: Codeine Morphine Penicillin PHYSICAL EXAMINATION: V/S: Blood pressure 119/86, respiratory rate 22, heart rate 102, temperature 98.6 with saturation 98%. HEENT: Atraumatic, normocephalic. No scleral icterus. Pallor positive. Mucosa dry. NECK: Supple. No JVD, no bruit. No lymphadenopathy. No thyromegaly. HEART: S1, S2 normal. No murmur. No cyanosis or clubbing. No ascites. LUNGS: Decreased and basilar crackles. Clear to auscultation. No rales or rhonchi. ABDOMEN: Distention is present. Soft, tenderness all over the belly. Bowel sounds are active. No CVA tenderness. No rigidity or guarding. Nephrostomy site is intact. EXTREMITIES: No pedal edema. No cyanosis or clubbing MUSCULOSKELETAL: Normal joints, no swelling. NEUROLOGIC: The patient is SKIN: Intact; no open lesions. LYMPHATIC: No lymph nodes palpable. LABS: WBC 17.34, hgb 11.5, hct 35.9, plt count 510, sodium 139, potassium 3.5, chloride 104, bicarb 24, BUN 7, creatinine 0.79, glucose 115. Urine is positive for leukocyte esterase and nitrates. ASSESSMENT: 1. Urinary tract infection with Urosepsis with elevated WBC 2. Obstipation 3. Ovarian metastatic tumor with resistance to the chemo. The patient not been followup with the Oncologist anymore PLAN: 1. Admit the patient to the regular floor 2. CBC and CMP today and daily 3. IV fluids 4. Levaquin 5. Dilaudid every hour PRN 6. Daily I&O's TIME SPENT: MORE THAN 75 minutes MTDD
[2017-09-08] MEDS: ZOFRAN 4 MG/2 ML IVP PRN (16:37)
[2017-09-08] MEDS: LEVAQUIN 750 MG in PREMIX 150 ML D5W 1 BAG IV SCH (20:37)
[2017-09-09] MEDS: PERCOCET 10-325 PO SCH ×6 (03:28→23:25)
[2017-09-09] MEDS: METHADONE PO SCH ×2 (07:59→20:58)
[2017-09-09] MEDS: PROTONIX IV IVP SCH ×2 (07:59→20:58)
[2017-09-09] MEDS: SODIUM CHLORIDE 1,000 ML IV SCH (11:25)
[2017-09-09] MEDS: ZOFRAN 4 MG/2 ML IVP PRN (18:19)
[2017-09-09] MEDS: ZOSYN 3.375 GM 3.375 GM in SODIUM CHLORIDE 50 ML IV SCH ×2 (18:19→23:20)
[2017-09-09] MEDS ORDERED: ROCEPHIN 1 GM in SODIUM CHLORIDE 50 ML IV SCH (18:30)
[2017-09-09] MEDS ORDERED: NON-FORMULARY MEDICATION (Temazepam [Restoril] 30 MG) PO SCH (21:00)
[2017-09-10] MEDS: PERCOCET 10-325 PO SCH ×6 (03:21→23:50)
[2017-09-10] MEDS: SODIUM CHLORIDE 1,000 ML IV SCH ×2 (04:48→21:41)
[2017-09-10] MEDS: ZOSYN 3.375 GM 3.375 GM in SODIUM CHLORIDE 50 ML IV SCH ×4 (05:02→23:50)
[2017-09-10] MEDS: PROTONIX IV IVP SCH ×2 (07:59→21:39)
[2017-09-10] MEDS: METHADONE PO SCH ×2 (07:59→20:44)
[2017-09-10] MEDS: ZOFRAN 4 MG/2 ML IVP PRN (12:50)
[2017-09-10] MEDS: PYRIDIUM PO SCH ×2 (17:27→20:43)
[2017-09-10] MEDS ORDERED: PHENERGAN 25 MG/ML VIAL ONE (17:32)
[2017-09-10] MEDS: NON-FORMULARY MEDICATION (Temazepam [Restoril] 30 MG) PO SCH (20:44)
[2017-09-11] MEDS: PERCOCET 10-325 PO SCH ×5 (03:21→20:05)
[2017-09-11] MEDS: ZOSYN 3.375 GM 3.375 GM in SODIUM CHLORIDE 50 ML IV SCH ×3 (05:18→17:34)
[2017-09-11] MEDS: SODIUM CHLORIDE 1,000 ML IV SCH ×2 (07:40→14:53)
[2017-09-11] MEDS: PROTONIX IV IVP SCH ×2 (07:59→20:34)
[2017-09-11] MEDS: ZOFRAN 4 MG/2 ML IVP PRN ×2 (07:59→16:13)
[2017-09-11] MEDS: PYRIDIUM PO SCH ×2 (07:59→20:05)
[2017-09-11] MEDS: METHADONE PO SCH ×2 (08:05→20:05)
[2017-09-11] MEDS: NON-FORMULARY MEDICATION (Temazepam [Restoril] 30 MG) PO SCH (20:05)
[2017-09-12] MEDS: PERCOCET 10-325 PO SCH ×4 (00:17→11:26)
[2017-09-12] MEDS: ZOSYN 3.375 GM 3.375 GM in SODIUM CHLORIDE 50 ML IV SCH ×3 (00:29→11:26)
[2017-09-12] MEDS: SODIUM CHLORIDE 1,000 ML IV SCH ×2 (07:12→08:59)
[2017-09-12] MEDS: PYRIDIUM PO SCH (09:00)
[2017-09-12] MEDS: METHADONE PO SCH (09:00)
[2017-09-12] MEDS: PROTONIX IV IVP SCH (09:00)
--- NOTE | 2017-09-12 09:03 | PN ---
DATE OF SERVICE: 09/08/17 SUBJECTIVE: The patient was admitted with the urinary tract infection and obstipation and metastatic endometrial cancer with edema. The patient was having small bowel movements. For urinary tract infection the patient is getting Levaquin. Abdominal pain is present with no nausea or vomiting. REVIEW OF SYSTEMS: CONSTITUTIONAL: No fever, no chills. HEENT: Normal. ENDOCRINE: No weight gain, no weight loss. CVS: No angina symptoms. No CHF symptoms. No palpitations. No atypical chest pain for CAD. No shortness of breath. No PND, no orthopnea. RESPIRATORY: No cough, no hemoptysis. GI: No nausea, no vomiting. Abdominal pain. : No hematuria. No polyuria. MUSCULOSKELETAL: No joint swelling. PSYCHIATRIC: Not anxious. No depression. No suicidal thoughts. No homicidal thoughts. SKIN: Intact. No rash. PHYSICAL EXAMINATION: V/S: blood pressure 96/55, respiratory rate 14, heart rate 79, temperature 97.8 with saturation 98%. HEENT: Normocephalic, atraumatic. Mucosa dry. Pallor positive. No icterus. NECK: Supple. No JVD, no carotid bruit. No lymphadenopathy. LUNGS: Decreased. Clear to auscultation. No rales or rhonchi. HEART: S1, S2 normal. No S3. No murmur, gallop or regurgitation. ABDOMEN: Distention is present. Soft, tender. Bowel sounds active. No rigidity. No rebound or guarding. No CVA tenderness. Mass is felt through the belly. Suprapubic tenderness. Urinary stents are intact. EXTREMITIES: No cyanosis, clubbing or pedal edema. MUSCULOSKELETAL: No joint swelling. NEUROLOGIC: Awake, alert, oriented times three. No focal deficit. LYMPHATIC: No lymph nodes palpable. SKIN: Intact. LABS: WBC 12.49, hgb 10.8, hct 33.3, plt count 436, sodium 138, potassium 3.6, chloride 106, bicarb 23, BUN 5, creatinine 0.70 and glucose 95. ASSESSMENT: 1. UTI, organism pseudomonas Aeruginosa 2. Obstipation 3. Constipation 4. Endometrial cancer with metastasis 5. Anemia 6. Urinary obstruction with nephrostomy tubes PLAN: 1. Continue Levaquin which is sensitive for the pseudomonas aeruginosa 2. Continue the An Catheter 3. Continue the Miralax and rectal suppository Colace again and enema TIME SPENT: More than 35 minutes MTDD
[2017-09-12 09:57] VITALS: BP 121/76; TEMP 99
--- NOTE | 2017-09-12 10:03 | PN ---
DATE OF SERVICE: 09/09/17 SUBJECTIVE: The patient having some trouble sleeping on the bed and did have 3-4 bowel movements and feeling better. REVIEW OF SYSTEMS: CONSTITUTIONAL: No fever, no chills. HEENT: Normal. ENDOCRINE: No weight gain, no weight loss. CVS: No angina symptoms. No CHF symptoms. No palpitations. No atypical chest pain for CAD. No shortness of breath. No PND, no orthopnea. RESPIRATORY: No cough, no hemoptysis. GI: No nausea, no vomiting. No abdominal pain. : No hematuria. No polyuria. MUSCULOSKELETAL: No joint swelling. PSYCHIATRIC: Not anxious. No depression. No suicidal thoughts. No homicidal thoughts. SKIN: Intact. No rash. PHYSICAL EXAMINATION: V/S: Blood pressure 119/73, respiratory rate 20, heart rate 82, temperature 98.6 with saturation 100%. HEENT: Normocephalic, atraumatic. Mucosa dry. Pallor positive. No icterus. NECK: Supple. No JVD, no carotid bruit. No lymphadenopathy. LUNGS: Decreased and clear to auscultation. No rales or rhonchi. HEART: S1, S2 normal. No S3. No murmur, gallop or regurgitation. ABDOMEN:Distention present. Soft, tender. Bowel sounds active. No rigidity. No rebound or guarding. No CVA tenderness. Metastatic masses are felt. Nephrostomy tubes are intact. EXTREMITIES: No cyanosis, clubbing or pedal edema. MUSCULOSKELETAL: No joint swelling. NEUROLOGIC: Awake, alert, oriented times three. No focal deficit. LYMPHATIC: No lymph nodes palpable. SKIN: Intact. LABS: WBC 12.49, hgb 10.8, hct 33.3, plt count 436, sodium 138, potassium 3.6, chloride 106, bicarb 23, BUN 5, creatinine 0.70 and glucose 95. ASSESSMENT: 1. UTI, organism e-coli sensitive to pseudomonas 2. Obstipation and constipation 3. Urinary obstruction with nephrostomy tubes 4. Metastatic endometrial cancer on Hospice PLAN: 1. Continue the Levaquin 2. Will D/C the An Catheter 3. Ambulate the patient 4. Make sure the patient will have urination before she can be discharged today. TIME SPENT: More than 35 minutes MTDD
--- NOTE | 2017-09-12 10:12 | PN ---
DATE OF SERVICE: 09/10/17 SUBJECTIVE: When An was taken out yesterday even was not able to void. The An has be reinserted and now she is passing some white colored clots and urine output from the An Catheter was 50ml and urine output from the right nephrostomy tube is 33ml and left nephrostomy tube is 50ml. REVIEW OF SYSTEMS: CONSTITUTIONAL: No fever, no chills. HEENT: Normal. ENDOCRINE: No weight gain, no weight loss. CVS: No angina symptoms. No CHF symptoms. No palpitations. No atypical chest pain for CAD. No shortness of breath. No PND, no orthopnea. RESPIRATORY: No cough, no hemoptysis. GI: No nausea, no vomiting. No abdominal pain. : No hematuria. No polyuria. MUSCULOSKELETAL: No joint swelling. PSYCHIATRIC: Not anxious. No depression. No suicidal thoughts. No homicidal thoughts. SKIN: Intact. No rash. PHYSICAL EXAMINATION: V/S: Blood pressure 115/72, respiratory rate 12, heart rate 91, temperature 98.5 with saturation 98%. HEENT: Normocephalic, atraumatic. Mucosa dry. Pallor positive. No icterus. NECK: Supple. No JVD, no carotid bruit. No lymphadenopathy. LUNGS: Decreased and clear to auscultation. No rales or rhonchi. HEART: S1, S2 normal. No S3. No murmur, gallop or regurgitation. ABDOMEN: Distention positive. Soft, tender. Bowel sounds active. No rigidity. No rebound or guarding. No CVA tenderness. Nephrostomy tubes are intact. EXTREMITIES: No cyanosis, clubbing or pedal edema. MUSCULOSKELETAL: No joint swelling. NEUROLOGIC: Awake, alert, oriented times three. No focal deficit. LYMPHATIC: No lymph nodes palpable. SKIN: Intact. LABS: Sodium 138, potassium 3.6, chloride 106, bicarb 23, BUN 5, creatinine 0.70, WBC 12.49, hgb 10.8, hct 33.3, plt count 436. ASSESSMENT: 1. UTI organism e-coli pseudomonas 2. Obstipation/constipation, resolved 3. Urinary obstruction on An Catheter and bilateral nephrostomy tubes 4. Endometrial metastatic cancer status post chemo therapy, no radiation. PLAN: 1. Will do the bladder irrigation 2. Regular diet 3. Continue Levaquin 4. Daily I&O's TIME SPENT: More than 35 minutes MTDD
--- NOTE | 2017-09-12 14:05 | PN ---
DATE OF SERVICE: 09/11/17 SUBJECTIVE: Still having trouble urinating. The patient is getting the bladder irrigation because An Catheter is still showing some pus kind of particles. REVIEW OF SYSTEMS: CONSTITUTIONAL: No fever, no chills. HEENT: Normal. ENDOCRINE: No weight gain, no weight loss. CVS: No angina symptoms. No CHF symptoms. No palpitations. No atypical chest pain for CAD. No shortness of breath. No PND, no orthopnea. RESPIRATORY: No cough, no hemoptysis. GI: Nausea, Vomiting. No abdominal pain. : No hematuria. No polyuria. MUSCULOSKELETAL: No joint swelling. PSYCHIATRIC: Not anxious. No depression. No suicidal thoughts. No homicidal thoughts. SKIN: Intact. No rash. PHYSICAL EXAMINATION: V/S: Blood pressure 114/72, respiratory rate 20, heart rate 96 and temperature 98.6 with saturation 98%. HEENT: Normocephalic, atraumatic. Mucosa dry. Pallor positive. no icterus. NECK: Supple. No JVD, no carotid bruit. No lymphadenopathy. LUNGS: Decreased and clear to auscultation. No rales or rhonchi. HEART: S1, S2 normal. No S3. No murmur, gallop or regurgitation. ABDOMEN:Distention positive. Soft, tender. Bowel sounds active. No rigidity. No rebound or guarding. No CVA tenderness. Nephrostomy tubes are intact and draining urine. EXTREMITIES: No cyanosis, clubbing or pedal edema. MUSCULOSKELETAL: No joint swelling. NEUROLOGIC: Awake, alert, oriented times three. No focal deficit. LYMPHATIC: No lymph nodes palpable. SKIN: Intact. LABS: WBC 12.49, hgb 10.8, hct 33.3, plt count 436, sodium 138, potassium 3.6, chloride 106, bicarb 23, BUN 5, creatinine 0.70 and glucose 95. ASSESSMENT: 1. UTI, organism pseudomonas aeruginosa 2. Urinary retention, on An Catheter 3. History of endometrial cancer with METS all over the body and abdomen 4. Urinary obstruction with bilateral nephrostomy bags 5. Recurrent UTI 6. Anemia PLAN: 1. Continue Azactam 2. Continue the bladder irrigation 3. IV fluids 4. Continue the pain medication 5. Daily I&O's TIME SPENT: More than 35 minutes MTDD
--- NOTE | 2017-10-26 13:59 | DS ---
DATE OF SERVICE: 09/12/17 FINAL DIAGNOSIS: 1. Obstipation, UTI Pseudomonas Aeruginosa 2. Metastatic mesenteric mass 3. Bilateral Percutaneous nephrostomy tube 4. Hysterectomy 2006 5. COPD 6. GERD 7. Hiatal hernia 8. IBS DISCHARGE INSTRUCTIONS: Discharge the patient home. Followup back with Hospice. Miralax OTC medication for the constipation. Resume hospice orders and medication. Empty catheter drainage bad frequently. Keep followup with Oncologist. Followup with Dr. Cox as scheduled. Continue the rest of the home medications. MEDICATIONS AT DISCHARGE: Ativan Methadone Neurontin Zofran Oxycodone Phenergan Restoril Senna NEW PRESCRIPTIONS: Levaquin 500mg daily for 3 days. DIET INSTRUCTIONS: As tolerated ACTIVITY: As tolerated DISEASE SPECIFIC EDUCATION: Urinary tract infection Constipation Pain medication side effects been discussed and verbalized understanding. HOSPITAL COURSE: Lizzie Lugo 52 year old female came to the emergency room and was not able to have a bowel movement. Abdominal pain and discomfort. Seen by Dr. Leon in the emergency room. CT of abdomen showed interval increase in size of large complex mass and constipation, mesenteric mass as described, nephrostomy tubes, moderate hiatal hernia. At that time the patient was admitted for obstipation, urinary tract infection and dehydration. The patient was started on the IV fluids, pain medication been continued. Nephrostomy tube been taking care. Dilaudid was given for the pain. Dulcolax was given and Magnesium Citrate was given. Started having bowel movement. Rocephin 1 gram started because of the urinary tract infection. Organism was sensitive to the Rocephin which is continued. Gradually the patient had a couple of bowel movement and started feeling better. No fever or chills. As the patient improved and feeling better she is being discharged back with the Hospice care. TIME SPENT: MORE THAN 65 MINUTES MTDD
== END 2017-09-12 12:50 | disposition home or self-care (01) | DRG 690 ==
LOC: ED 23:28 → MEDSURG A 09-07 03:28 → UNDOADMIN 09-07 03:28
PROVIDERS: ADMIT Emergency Medicine; ATTEND Emergency Medicine
DX: N39.0 Urinary tract infection, site not specified (principal); C77.2 Secondary and unspecified malignant neoplasm of intra-abdominal lymph nodes; C56.9 Malignant neoplasm of unspecified ovary; R10.9 Unspecified abdominal pain; R31.9 Hematuria, unspecified; B96.5 Pseudomonas (aeruginosa) (mallei) (pseudomallei) as the cause of diseases classified elsewhere; B96.89 Other specified bacterial agents as the cause of diseases classified elsewhere; J44.9 Chronic obstructive pulmonary disease, unspecified; K21.9 Gastro-esophageal reflux disease without esophagitis; K59.00 Constipation, unspecified; K44.9 Diaphragmatic hernia without obstruction or gangrene; K58.9 Irritable bowel syndrome, unspecified; Z72.0 Tobacco use
CPT/HCPCS: 36415; 80053; 81001; 82150; 82550; 83690; 84484; 85008; 85025; 87086; 87186; 93005; 93010; 96361; 96365; 96367; 96375; 99223; 99233; 99239; 99284

== ENCOUNTER 2017-10-09 14:48 | Emergency (ER) ==
[2017-10-09 14:52] VITALS: BP 117/62; TEMP 99.2; BMI 22.8
[2017-10-09] MEDS ORDERED: ROCEPHIN IM STA (15:06)
[2017-10-09] MEDS ORDERED: LIDOCAINE HCL 1% SDV IM STA (15:06)
--- NOTE | 2017-10-09 15:08 | ED.PDOC ---
General ED Provider: Dr. NILO TARANGO Chief Complaint: Urinary Problem Stated Complaint: dysuria Time Seen by Physician: 14:49 Mode of Arrival: Wheelchair Information Source: Patient Exam Limitations: No limitations Primary Care Provider: MALATHI TROY Nursing and Triage Documentation Reviewed and Agree: Yes Does patient meet sepsis criteria?: No If yes, has appropriate treatment been initiated?: No System Inflammatory Response Syndrome: Not Applicable Sepsis Protocol: For patient's 13 years and over: Temp is 96.8 and below OR 101 and greater Pulse >90 BPM Resp >20/minute Acutely Altered Mental Status Are patient's symptoms suggestive of a new infection, such as: -Pneumonia -Skin, Soft Tissue -Endocarditis -UTI -Bone, Joint Infection -Implantable Device -Acute Abdominal Infection -Wound Infection -Meningitis -Blood Stream Catheter Infection -Unknown Review of Systems - Review Of Systems Constitutional: Reports: No symptoms Eyes: Reports: No symptoms Ears, Nose, Mouth, Throat: Reports: No symptoms Respiratory: Reports: No symptoms Cardiac: Reports: No symptoms GI: Reports: No symptoms : Reports: Dysuria Musculoskeletal: Reports: No symptoms Skin: Reports: No symptoms Neurological: Reports: No symptoms Endocrine: Reports: No symptoms Hematologic/Lymphatic: Reports: No symptoms All Other Systems: Reviewed and Negative Past Medical History - Past Medical History Previously Healthy: Yes Endocrine: Reports: Hypothyroid Cardiovascular: Reports: None Respiratory: Reports: COPD Hematological: Reports: None Gastrointestinal: Reports: GERD, Other Genitourinary: Reports: None Neuro/Psych: Reports: None Musculoskeletal: Reports: None Cancer: Reports: Other Last Menstrual Period: n/a - Surgical History General Surgical History: Reports: Hysterectomy, Orthopedic - Family History Family History: Reports: Unknown - Social History Smoking Status: Current every day smoker, Light tobacco smoker Hx Substance Use: No Alcohol Screening: None Physical Exam - Physical Exam Appearance: Well-appearing, No pain distress, Well-nourished Eyes: JANAY, EOMI, Conjunctiva clear ENT: Ears normal, Nose normal, Oropharynx normal Respiratory: Breath sounds diminished Cardiovascular: RRR, Pulses normal, No rub, No murmur GI/: Soft, Nontender, No masses, Bowel sounds normal, No Organomegaly Musculoskeletal: Normal strength, ROM intact, No edema, No calf tenderness Skin: Warm, Dry, Normal color Neurological: Sensation intact, Motor intact, Reflexes intact, Cranial nerves intact, Alert, Oriented Psychiatric: Affect appropriate, Mood appropriate Critical Care Note - Critical Care Note Total Time (mins): 0 Course - Course Orders, Labs, Meds: Lab Review 10/09/17 15:30 Urine Color Yellow Urine Clarity Cloudy Urine pH 5.5 Ur Specific [place] >=1.030 Urine Protein 3+ Urine Glucose (UA) Negative Urine Ketones Negative Urine Blood 2+ Urine Nitrite Positive Urine Bilirubin Negative Urine Urobilinogen 0.2 Ur Leukocyte Esterase 3+ Urine Microscopic WBC Tntc Ur Squamous Epith Cells Not present Orders Category Date Time Status UA [URINALYSIS C & S IF INDICATED] Stat LAB 10/09/17 15:30 Completed URINE CULTURE Stat LAB 10/09/17 15:46 Received Ceftriaxone Sodium [Rocephin] MEDS 10/09/17 15:06 Discontinued 1 gm IM ONCE STA Lidocaine HCl/Pf [Lidocaine HCl 1% Sdv] MEDS 10/09/17 15:06 Discontinued 2.1 ml IM ONCE STA CT ABD/PEL WO RENAL STONE PROT Stat RADS 10/09/17 15:22 Completed Medications Discontinued Medications Generic Name Dose Route Start Last Admin Trade Name Mikeq PRN Reason Stop Dose Admin Ceftriaxone Sodium 1 gm 10/09/17 15:06 10/09/17 15:38 Rocephin IM 10/09/17 15:07 1 gm ONCE STA Administration Lidocaine HCl 2.1 ml 10/09/17 15:06 10/09/17 15:38 Lidocaine Hcl 1% Sdv IM 10/09/17 15:07 2.1 ml ONCE STA Administration Vital Signs: Temp Pulse Resp BP Pulse Ox 10/09/17 14:49 99.2 F 119 H 20 117/62 86 L Departure - Departure Time of Disposition: 16:25 Disposition: HOME SELF-CARE Discharge Problem: Urinary symptoms, Urinary tract infectious disease UTI (urinary tract infection) Qualifiers: Urinary tract infection type: site unspecified Hematuria presence: with hematuria Qualified Code(s): N39.0 - Urinary tract infection, site not specified ; R31.9 - Hematuria, unspecified Instructions: Urinary Tract Infection in Women (ED) Condition: Good Pt referred to PMD for follow-up: Yes IPMP verified?: No Additional Instructions: Please call your Family Physician as soon as possible to schedule a follow-up appointment. Allergies/Adverse Reactions: Allergies codeine Adverse Reaction (Verified 10/09/17 14:52) morphine Adverse Reaction (Verified 10/09/17 14:52) Penicillins Adverse Reaction (Verified 10/09/17 14:52) Home Medications: Ambulatory Orders Lorazepam [Ativan] 1 mg PO Q6HR PRN 05/14/17 Oxycodone-Acetaminophen 10-325 [Percocet 10-325] 1 tab PO Q4H 05/14/17 Promethazine HCl [Phenergan Tab] 25 mg PO Q6H PRN 05/14/17 Methadone HCl [Methadone] 10 mg PO Q12HR 07/14/17 Temazepam [Restoril] 30 mg PO BEDTIME 09/09/17 Gabapentin 300 mg PO DAILY 10/09/17 Ondansetron HCl [Zofran] 8 mg PO Q6H PRN 10/09/17 Sennosides [Senexon] 8.6 mg PO DAILY 10/09/17
--- NOTE | 2017-10-09 16:09 | CT ---
EXAM: CT abdomen pelvis without contrast HISTORY: Abdominal pain with history of nephrostomy tube and endometrial cancer. Patient unable to urinate. Prior hysterectomy. COMPARISON: CT abdomen pelvis 07/14/2017 and 09/07/2017 TECHNIQUE: Serial axial images of the abdomen pelvis were performed from the lung bases through the inferior pelvis without contrast. These were viewed in multiple planes. FINDINGS: There is consolidation in the right lower lobe. Evaluation is limited due to lack of contrast. The liver is unremarkable. The gallbladder is normal . There is a right posterior approach. Tube with the tip in the inferior aspect of the right kidney . This has changed in position in comparison to prior study. The fluid collection anterior to the i nferior aspect of the right kidney measures 7.2 cm in diameter in comparison to a 0.5 x 6.5 cm. The l eft kidney demonstrates atrophy with posterior nephrostomy tube placement unchanged from prior exam. Spleen is normal. Pancreas is normal. The large multilocular and septated mass with calcifications involving the abdomen and pelvis is unc hanged. This demonstrates mass effect on the adjacent bowel and structures in the pelvis. No additional abnormalities identified. There is a An catheter present with no distended urinary bladder identified. The osseous structures are unremarkable. IMPRESSION: 1. Large low attenuation cystic mass in the abdomen pelvis is unchanged in comparison to prior exam 09/07/2017. Cystic collection/mass anterior to the right kidney is relatively unchanged. 2. Interval change in positioning of the right posterior nephrostomy tube with the tip in the region of the right inferior pole cortex. The left nephrostomy tube is unchanged from prior exam. 3. No significant change in cystic mass anterior to the right kidney. 4. An catheter in the decompressed urinary bladder with unchanged renal atrophy. 5. Right lower lobe consolidation may represent pneumonia versus atelectasis.
== END 2017-10-09 16:45 | disposition home or self-care (01) ==
LOC: ED 14:48
DX: N39.0 Urinary tract infection, site not specified (principal); F17.210 Nicotine dependence, cigarettes, uncomplicated
CPT/HCPCS: 74176; 81001; 87086; 96372; 99283

== ENCOUNTER 2017-11-03 14:21 | Outpatient (CLI) ==
[2017-11-03 14:46] VITALS: BMI 23.2
== END 2017-11-03 14:26 | disposition critical access hospital (66) ==
LOC: AMBL 14:21
PROVIDERS: ATTEND Internal Medicine
DX: S59.912A Unspecified injury of left forearm, initial encounter (principal); S69.92XA Unspecified injury of left wrist, hand and finger(s), initial encounter; R53.1 Weakness; S09.90XA Unspecified injury of head, initial encounter; C80.1 Malignant (primary) neoplasm, unspecified; W19.XXXA Unspecified fall, initial encounter

== ENCOUNTER 2017-11-03 14:43 | Emergency (ER) ==
[2017-11-03 14:46] VITALS: BP 109/65; TEMP 97.3; BMI 23.2
--- NOTE | 2017-11-03 15:37 | DI ---
EXAM: Left hand three-view HISTORY: Pain, fall COMPARISON: None FINDINGS: There is a moderately displaced and impacted interarticular fracture of the distal radius with posterior angulation of the distal fracture fragment. Questionable avulsion fracture of the uln ar styloid. IMPERSSION: Displaced fracture of the distal radius. Questionable small avulsion ulnar styloid.
--- NOTE | 2017-11-03 15:39 | DI ---
EXAM: Two views of the left forearm HISTORY: Pain post fall. COMPARISON: Left wrist x-rays same day FINDINGS: There is a comminuted posterior displaced fracture of the distal radius. There is no proxi mal radial fracture. Below the loose unremarkable with no definitive fracture. The soft tissues are unremarkable. IMPRESSION: Comminuted and posterior angulated fracture of the distal radius.
--- NOTE | 2017-11-03 15:40 | DI ---
Exam: Three views of the left wrist. Comparison: None available. Reason for exam: Pain after fall. FINDINGS: There is a comminuted fracture of the left distal radius with multiple fracture fragments and angulation of the radiocarpal joint space. Soft tissue swelling seen seen adjacent to the fractur e site. Impression: Comminuted fracture of the right distal radius with multiple fracture fragments. Recomme nd orthopedic consultation.
--- NOTE | 2017-11-03 15:51 | ED.PDOC ---
General ED Provider: Dr. NILO TARANGO Chief Complaint: Fall Stated Complaint: FALL LEFT WRIST PAIN NO OTHER INJURY OFFERED Time Seen by Physician: 15:00 (CRISTIAN PRESENT AT ALL TIMES ) Mode of Arrival: Walk-In Information Source: Patient Exam Limitations: No limitations Primary Care Provider: NIKA BRADSHAW Nursing and Triage Documentation Reviewed and Agree: Yes Does patient meet sepsis criteria?: No System Inflammatory Response Syndrome: Not Applicable Sepsis Protocol: For patient's 13 years and over: Temp is 96.8 and below OR 101 and greater Pulse >90 BPM Resp >20/minute Acutely Altered Mental Status Are patient's symptoms suggestive of a new infection, such as: -Pneumonia -Skin, Soft Tissue -Endocarditis -UTI -Bone, Joint Infection -Implantable Device -Acute Abdominal Infection -Wound Infection -Meningitis -Blood Stream Catheter Infection -Unknown Trauma/Injury Complaint Exam - Trauma Complaint/Exam Location of Pain or Injury: Reports: LUE (WRIST, HAND ) Mechanism of Injury: Reports: Fall Onset/Duration: TODAY Symptoms Are: Still present Timing of Treatment: Immediate Initial Severity: Moderate Current Severity: Moderate Character: Reports: Aching Aggravating: Reports: Movement Alleviating: Reports: Rest Associated Signs and Symptoms: Denies: LOC, Confusion, Memory loss, Lethargy, Vomiting, Bleeding, Bruising, Swelling, Extremity disuse, Painful respiration, Hoarseness, Dysphagia, Hemoptysis, Significant blood loss Nexus Low Risk Criteria: No post-midline CS tender, No evidence of intoxicat., No Altered LOC, No focal neuro deficit, No distracting injuries Glascow Coma Scale (see protocol): 15 Trauma Findings: Absent: [place] eyes, Hemotympanum, Nasal deformity, Dental tenderness, Dental injury, Dental malocclusion, Neck tenderness, Neck spasm, SubQ Air, Crepitus, Airway obstructed, Trachea displaced Differential Diagnoses: Fracture, Sprain, Strain Review of Systems - Review Of Systems Constitutional: Reports: No symptoms Eyes: Reports: No symptoms Ears, Nose, Mouth, Throat: Reports: No symptoms Respiratory: Reports: No symptoms Cardiac: Reports: No symptoms GI: Reports: No symptoms : Reports: No symptoms Musculoskeletal: Reports: Joint pain (LEFT WRIST) Skin: Reports: No symptoms Neurological: Reports: No symptoms Endocrine: Reports: No symptoms Hematologic/Lymphatic: Reports: No symptoms All Other Systems: Reviewed and Negative Past Medical History - Past Medical History Previously Healthy: Yes Endocrine: Reports: Hypothyroid Cardiovascular: Reports: None Respiratory: Reports: COPD Hematological: Reports: None Gastrointestinal: Reports: GERD, Other Genitourinary: Reports: None Neuro/Psych: Reports: None Musculoskeletal: Reports: None Cancer: Reports: Other Last Menstrual Period: N/A - Surgical History General Surgical History: Reports: Hysterectomy, Orthopedic - Family History Family History: Reports: Unknown - Social History Smoking Status: Current every day smoker, Light tobacco smoker Hx Substance Use: No Alcohol Screening: None - Immunizations Tetanus Shot up to Date: Yes Physical Exam - Physical Exam Appearance: Well-appearing, No pain distress, Well-nourished Eyes: JANAY, EOMI, Conjunctiva clear ENT: Ears normal, Nose normal, Oropharynx normal Respiratory: Airway patent, Breath sounds clear, Breath sounds equal, Respirations nonlabored Cardiovascular: RRR, Pulses normal, No rub, No murmur GI/: Soft, Nontender, No masses, Bowel sounds normal, No Organomegaly Musculoskeletal: Limited ROM (LEFT WRIST ) Skin: Warm, Dry, Normal color Neurological: Sensation intact, Motor intact, Reflexes intact, Cranial nerves intact, Alert, Oriented Psychiatric: Affect appropriate, Mood appropriate Interpretation - Radiology Interpretation Radiology Interpretation By: Radiologist Radiology Results: Positive (LEFT WRIST FX) Critical Care Note - Critical Care Note Total Time (mins): 0 Course - Course Orders, Labs, Meds: Orders Category Date Time Status ELBOW, LEFT MIN 3 VIEWS Stat RADS 11/03/17 15:06 Ordered FOREARM, LEFT 2 VIEWS Stat RADS 11/03/17 15:06 Completed HAND, LEFT 3 VIEWS Stat RADS 11/03/17 15:07 Completed WRIST, LEFT 3 VIEWS Stat RADS 11/03/17 15:07 Completed Vital Signs: Temp Pulse Resp BP Pulse Ox 11/03/17 14:44 97.3 F L 87 16 109/65 97 Departure - Departure Time of Disposition: 15:51 Disposition: HOME SELF-CARE Discharge Problem: Falls Fx. left wrist Qualifiers: Encounter type: initial encounter Fracture type: closed Qualified Code(s): S62.102A - Fracture of unspecified carpal bone, left wrist, initial encounter for closed fracture Instructions: Wrist Fracture in Adults (ED) Condition: Good Pt referred to PMD for follow-up: Yes IPMP verified?: No Allergies/Adverse Reactions: Allergies codeine Adverse Reaction (Verified 11/03/17 14:46) morphine Adverse Reaction (Verified 11/03/17 14:46) Penicillins Adverse Reaction (Verified 11/03/17 14:46) Home Medications: Ambulatory Orders Lorazepam [Ativan] 1 mg PO Q6HR PRN 05/14/17 Oxycodone-Acetaminophen 10-325 [Percocet 10-325] 1 tab PO Q4H 05/14/17 Promethazine HCl [Phenergan Tab] 25 mg PO Q6H PRN 05/14/17 Methadone HCl [Methadone] 10 mg PO Q12HR 07/14/17 Temazepam [Restoril] 30 mg PO BEDTIME 09/09/17 Gabapentin 300 mg PO DAILY 10/09/17 Ondansetron HCl [Zofran] 8 mg PO Q6H PRN 10/09/17
== END 2017-11-03 16:05 | disposition home or self-care (01) ==
LOC: ED 14:43
DX: S52.502A Unspecified fracture of the lower end of left radius, initial encounter for closed fracture (principal); W19.XXXA Unspecified fall, initial encounter; F17.210 Nicotine dependence, cigarettes, uncomplicated
CPT/HCPCS: 99283

== ENCOUNTER 2017-11-24 12:33 | Outpatient (CLI) ==
--- NOTE | 2017-11-24 13:19 | DI ---
EXAM: Two views of the chest. History: Preoperative evaluation. Comparison: Chest radiograph 12/04/2008 Findings: Heart size is within normal limits. Severe elevation of the right hemidiaphragm with shreya cent atelectasis. No definite acute infiltrates. No central line is seen in place. No pneumothorax . No acute osseous abnormalities. Impression: 1. No acute infiltrates. 2. Severe elevation of the right hemidiaphragm with adjacent right lower lobe atelectasis.
== END 2017-11-24 12:34 | disposition home or self-care (01) ==
LOC: CAR 12:33
PROVIDERS: ATTEND Nurse Practitioner Family
DX: Z01.818 Encounter for other preprocedural examination (principal)
CPT/HCPCS: 36415; 80053; 85008; 85025; 93005; 93010

== ENCOUNTER 2017-11-29 12:02 | Outpatient (CLI) | END 2017-11-29 13:22 | disposition short-term general hospital (02) | LOC: AMBL 12:02 | PROVIDERS: ATTEND Internal Medicine | DX: R52 Pain, unspecified (principal); R41.82 Altered mental status, unspecified ==